=== PATIENT | male | born 1970 | race Caucasian/White ===

== ENCOUNTER 2024-01-30 12:42 | Outpatient (CLI) | payer OTHER, SELFPAY ==
--- NOTE | ~2024-01-30 | CT_ITS ---
CT Scan of the Chest without Contrast: Clinical Indication: Lung cancer screening, nicotine dependence Technique: Contiguous sections were acquired throughout the chest without intravenous contrast. Dose reduction technique was used on this scan by utilizing automated exposure control and iterative recon struction technique. The dose-length product (DLP) was 135.93 mGy-cm. Findings: There is no evidence of any significant mediastinal, hilar or axillary lymphadenopathy. The mediastin al soft tissues appear normal. There is no evidence of pleural or pericardial effusion. 4 mm and 3 mm right middle lobe pulmonary nodules are present (axial images 77, 78). 4 mm left lower lobe pulmonary nodule present peripherally (axial image 90). Images through the upper abdomen reveal no abnormalities. Impression: Lung RADS 2: Benign appearance. 12 month follow-up screening CT advised. Reviewed, dictated and finalized at [facility]. Impression: Lung RADS 2: Benign appearance. 12 month follow-up screening CT advised.
== END 2024-01-30 12:43 | disposition home or self-care (01) ==
PROVIDERS: Visit Provider Emergency Medicine
DX: Z12.2 Encounter for screening for malignant neoplasm of respiratory organs (principal); Z87.891 Personal history of nicotine dependence
CPT/HCPCS: 71271